=== PATIENT | female | born 1990 | race African-American/Black ===

== ENCOUNTER 2018-10-19 22:02 | Emergency (ER) | payer SELFPAY ==
[~2018-10-19] VITALS: Ht 170.2 cm; Wt 99.8 kg
[2018-10-19 23:25] VITALS: BP 146/90
[2018-10-20] MEDS ORDERED: cefTRIAXone SOD 1,000 MG VL IM ONE (00:15)
[2018-10-20] MEDS ORDERED: methylPREDNISolone SOD SUCC 125 MG/2 ML VL IM ONE (00:15)
== END 2018-10-20 01:08 | disposition home or self-care (01) ==
LOC: ER 22:11
DX: B34.9 Viral infection, unspecified (principal)
CPT/HCPCS: 96372; 99283; J0696; J2930